=== PATIENT | male | born 1955 | race Caucasian/White ===

== ENCOUNTER 2023-11-03 06:38 | Emergency (ER) | payer BC, MEDICARE ==
[~2023-11-03] VITALS: Ht 175.3 cm; Wt 106.0 kg
[2023-11-03 06:48] VITALS: BP 165/93; PULSE 86; O2SAT 95
[2023-11-03] MEDS ORDERED: HYDROcodone/acetaminophen 5mg/325mg tablet PO ONE (08:40)
[2023-11-03 10:54] VITALS: RESP 18
[2023-11-03] MEDS ORDERED: HYDR-3965 PO (11:21)
[2023-11-03 11:34] VITALS: TEMP 98.5
== END 2023-11-03 11:36 | disposition home or self-care (01) ==
LOC: ER 06:39
DX: S42.032A Displaced fracture of lateral end of left clavicle, initial encounter for closed fracture (principal); W18.39XA Other fall on same level, initial encounter; Y93.89 Activity, other specified; Y92.89 Other specified places as the place of occurrence of the external cause; Y99.8 Other external cause status
CPT/HCPCS: 71111; 71250; 72040; 72070; 72125; 73000; 99284; A4565